=== PATIENT | male | born 1985 | race Caucasian/White ===

== ENCOUNTER 2020-05-07 17:24 | Emergency (ER) | payer OTHER ==
[~2020-05-07] VITALS: Ht 167.6 cm; Wt 100.0 kg
[2020-05-07 17:28] VITALS: BP 137/97
== END 2020-05-07 18:59 | disposition home or self-care (01) ==
LOC: ER 17:25
DX: M77.8 Other enthesopathies, not elsewhere classified (principal); M25.532 Pain in left wrist
CPT/HCPCS: 29125; 73110; 99283

== ENCOUNTER 2020-06-14 07:58 | Emergency (ER) | payer OTHER ==
[~2020-06-14] VITALS: Ht 167.6 cm; Wt 86.4 kg
[2020-06-14 08:00] VITALS: BP 119/72
[2020-06-14] MEDS ORDERED: CYCL-394 PO (09:18)
== END 2020-06-14 09:37 | disposition home or self-care (01) ==
LOC: ER 07:58
DX: M54.6 Pain in thoracic spine (principal); R25.2 Cramp and spasm
CPT/HCPCS: 99283

== ENCOUNTER 2020-06-19 07:55 | Emergency (ER) | payer OTHER ==
[~2020-06-19] VITALS: Ht 167.6 cm; Wt 85.9 kg
[~2020-06-19 07:55] MED LIST: CYCL-394 PO
[2020-06-19 08:13] VITALS: BP 118/85
[2020-06-19] MEDS ORDERED: dexamethasone sod phosphate 10mg/ml inj IM STA (08:14)
[2020-06-19] MEDS ORDERED: triamcinolone acetonide 40mg/ml inj IM ONE (08:15)
== END 2020-06-19 08:49 | disposition home or self-care (01) ==
LOC: ER 07:56
DX: L23.7 Allergic contact dermatitis due to plants, except food (principal); Z79.899 Other long term (current) drug therapy
CPT/HCPCS: 96372; 99284; J1100; J3301

== ENCOUNTER → 2020-06-21 | Emergency (ER) | payer OTHER ==
[~2020-06-21] VITALS: Ht 167.6 cm; Wt 86.4 kg
== END | disposition home or self-care (01) ==
LOC: ER 11:29
DX: M54.9 Dorsalgia, unspecified (principal); Z79.899 Other long term (current) drug therapy
CPT/HCPCS: 99281